=== PATIENT | male | born 1950 | race Caucasian/White ===

== ENCOUNTER → 2017-05-28 15:47 | Outpatient (CLI) | payer MEDICARE, SELFPAY | PROVIDERS: Family Provider Family Medicine; PCP Family Medicine; Visit Provider Urology | DX: R97.20 Elevated prostate specific antigen [PSA] (principal) | CPT/HCPCS: 36415; 84153 ==

== ENCOUNTER → 2017-05-29 08:55 | Outpatient (CLI) | payer MEDICARE, SELFPAY ==
--- NOTE | 2017-05-29 08:57 | ECHOD_ITS ---
Reason For Study: HTN Procedure This was a 2D Doppler, Color Flow transthoracic echocardiogram. Exam performed in department. Left Ventricle Normal LV size. Left ventricular systolic function is normal. The estimated ejection fraction is 60 %. No regional wall motion abnormalities noted. Right Ventricle Normal RV size. Normal systolic function. Atria Normal left atrium. Normal right atrium. Patent foramen ovale. Mitral Valve Normal mitral valve. Mild (1+) eccentric mitral valve insufficiency. Tricuspid Valve Normal tricuspid valve. Trivial tricuspid valve insufficiency. Aortic Valve Normal aortic valve. Trisinus/trileaflet aortic valve. Mild (1+) eccentric aortic valve insufficiency. Pulmonic Valve Normal pulmonic valve. Trivial pulmonic valve insufficiency. Great Vessels Normal aortic root. The pulmonary artery is normal size. Normal inferior vena cava. Pericardium/Pleural No pericardial effusion. Medication Performed a rapid injection of agitated mix of 9 cc saline and 1cc air to assess for atrial septal defect. MMode/2D Measurements & Calculations LVIDd: 4.9 cm IVSd: 0.94 cm Ao root diam: 3.5 cm LVIDs: 2.8 cm LVPWd: 0.98 cm LA dimension: 4.1 cm RVDd: 2.9 cm FS: 42.3 % LAV(MOD-bp): 51.0 ml LAV(MOD-bp) Indexed: 25.0 ml/m2 LA A4 area: 16.9 cm2 RA A4 area: 15.6 cm2 LAV(MOD-sp2): 54.6 ml LAV(MOD-sp4): 47.0 ml Doppler Measurements & Calculations MV E max kosta: 50.3 cm/sec Lat Peak E' Kosta: 8.0 cm/sec Med Peak E' Kosta: 4.5 cm/sec MV A max kosta: 79.4 cm/sec E/E' lat: 6.3 E/E' med: 11.3 MV E/A: 0.63 Ao V2 max: 139.6 cm/sec LV V1 max: 87.9 cm/sec PA V2 max: 92.5 cm/sec Ao max P.8 mmHg LV V1 max P.1 mmHg Ao V2 mean: 98.6 cm/sec Ao mean P.2 mmHg Ao V2 VTI: 26.3 cm PI end-d kosta: 96.2 cm/sec TR max kosta: 210.3 cm/sec TR max P.7 mmHg Interpretation Summary Normal LV size. Left ventricular systolic function is normal. The estimated ejection fraction is 60 %. Patent foramen ovale. Mild (1+) eccentric mitral valve insufficiency. Ordering Physician: Zane Sánchez Referring Physician: Zane Sánchez Performed By: Carmela Irvin, MUNACS, RVT
== END ==
PROVIDERS: Family Provider Family Medicine; PCP Family Medicine; Visit Provider Family Medicine
DX: I10 Essential (primary) hypertension (principal); R06.02 Shortness of breath
CPT/HCPCS: 93306; A4216

== ENCOUNTER → 2017-07-03 09:02 | Outpatient (CLI) | payer MEDICARE, SELFPAY ==
--- NOTE | 2017-07-02 | PROSBIL_PTH ---
PATIENT: TIERRA TIPTON LOC: [facility] U#:[id number] AGE/SX: 75/M ROOM: RE07/03/[address]: Dr. Atul Bender MD : 1950 BED: DIS: SPEC #: [id number] RECD: 07/03/17 12:00 STATUS: DHARMESH YOUSIF #: [id number] HARVINDER: 07/02/17 00:[address]: Atul Bender DEPT: SURGICAL PATHOLOGY RECD BY: Ozzie Maldonado ENTERED: 07/03/17 12:00 SP TYPE: PROST BX DIANA DR: Dr. Zane Sánchez MD Tissues: A - PROSTATE RIGHT B - PROSTATE RIGHT C - PROSTATE RIGHT D - PROSTATE LEFT E - PROSTATE LEFT F - PROSTATE LEFT Procedures: PROSTATE BX HEADER OPERATION: Prostate biopsy PRE-OP DIAGNOSIS: Elevated PSA TISSUE SUBMITTED: A - Right apex, B - Right mid, C - Right base, D - Left apex, E - Left mid, F - Left base MICROSCOPIC DIAGNOSIS A. Right prostate, apex, core biopsy: Prostatic adenocarcinoma: Rosalinda grade: 3+4=7 Number of cores involved: 2 out of 2 Proportion of tissue involved: 60% Perineural invasion: Suspected. Greatest tumor length: 0.5 cm B. Right prostate, mid, core biopsy: Focal high-grade prostatic intraepithelial neoplasia (HGPIN). Focal atrophy. C. Right prostate, base, core biopsy: Prostatic tissue, negative for malignancy. Focal atrophy. D. Left prostate, apex, core biopsy: Prostatic tissue, negative for malignancy. Focal mild chronic inflammation and minimal acute inflammation. E. Left prostate, mid, core biopsy: Prostatic tissue, negative for malignancy. Focal atrophy. F. Left prostate, base, core biopsy: Prostatic tissue, negative for malignancy. STEPH:mable 07/06/17 COMMENT Please make reference to previous specimen ([id number], [id number]) right and left prostate, core biopsy with diagnosis of prostatic tissue, negative for malignancy and ([id number]) prostate, right apex, mid and base and prostate, left apex, mid and base with diagnosis of prostatic tissue, negative for malignancy. Case has been reviewed in consultation with Dr. Herrera who concurs with the above diagnosis. IDC:AM MICROSCOPIC DESCRIPTION Slides are reviewed. GROSS DESCRIPTION A - Received is one container designated prostate, right apex. The specimen consists of two elongated fragments of light lópez-white soft tissue each measuring 1 cm in length and 0.1 cm in diameter. The specimen is totally submitted in one cassette. B - Received is one container designated prostate, right mid. The specimen consists of two elongated fragments of light lópez-white soft tissue each measuring 2 cm in length and 0.1 cm in diameter. The specimen is totally submitted in one cassette. C - Received is one container designated prostate, right base. The specimen consists of two elongated fragments of light lópez-white soft tissue each measuring 1.5 cm in length and 0.1 cm in diameter. The specimen is totally submitted in one cassette. D - Received is one container designated prostate, left apex. The specimen consists of two elongated fragments of light lópez-white soft tissue each measuring 1 cm in length and 0.1 cm in diameter. The specimen is totally submitted in one cassette. E - Received is one container designated prostate, left mid. The specimen consists of two elongated fragments of light lópez-white soft tissue each measuring 1 cm in length and 0.1 cm in diameter. The specimen is totally submitted in one cassette. F - Received is one container designated prostate, left base. The specimen consists of two elongated fragments of light lópez-white soft tissue each measuring 1 cm in length and 0.1 cm in diameter. The specimen is totally submitted in one cassette. / AM:mable 07/03/17 TC:0 CPT: G0146 ADDENDUM ADDENDUM ADDENDUM ADDENDUM ADDENDUM ADDENDUM ADDENDUM ADDENDUM 08/07/2017 09:12 ADDENDUM 08/07/2017 09:12 ADDENDUM 08/07/2017 09:12 ADDENDUM 08/07/2017 09:12 ADDENDUM 08/07/2017 09:12 An order for Oncotype testing was received from Dr. Bendre. This necessitated case review, block and slide selection by pathologist at [facility]. Prostate Cancer Recurrence Score = 45 Results of the complete Oncotype testing (swabr report) are viewable in EMR under: Reports - Pathology - Lab Pathology Report, Scanned.
== END ==
PROVIDERS: Family Provider Family Medicine; PCP Family Medicine; Visit Provider Urology
DX: R97.20 Elevated prostate specific antigen [PSA] (principal)
CPT/HCPCS: 88305; G0416

== ENCOUNTER → 2017-07-22 08:26 | Outpatient (CLI) | payer MEDICARE, SELFPAY ==
--- NOTE | 2017-07-22 08:31 | NM_ITS ---
CLINICAL: Male, 67 years old. Prostate cancer. WHOLE BODY NUCLEAR BONE SCAN TECHNIQUE: Following the IV administration of 27 mCi of Tc MDP, whole body bone imaging was performed with a gamma camera following a three hour delay. COMPARISON STUDIES : NM - None. CR - Not available for review at this time. CT - Not available for review at this time. MR - Not available for review at this time. US - Not available for review at this time. FINDINGS: There are no focal suspicious areas of uptake to suggest metastatic disease. There are degenerative changes in both shoulders right worse than left, throughout the spine, both elbows, wrists, knees, ankle and feet. NM/Bone Scan Whole Body IMPRESSION: No evidence of metastatic prostate cancer. Widespread degenerative changes. Electronically Signed: Janes Arzate MD at 16:09 EDT , Service support ,
== END ==
PROVIDERS: Family Provider Family Medicine; PCP Family Medicine; Visit Provider Urology
DX: C61 Malignant neoplasm of prostate (principal)
CPT/HCPCS: 78306

== ENCOUNTER → 2017-07-23 14:25 | Outpatient (CLI) | payer MEDICARE, SELFPAY ==
--- NOTE | 2017-07-23 14:26 | CT_ITS ---
STUDY: CT ABDOMEN AND PELVIS WITH CONTRAST REASON FOR EXAM: Male, 67 years old. Prostate cancer. RADIATION DOSAGE (If Supplied By Facility): CTDIvol = ( 14.65 ) mGy, DLP = ( 667.52 ) mGycm TECHNIQUE: Transaxial images were obtained from the dome of the diaphragm to the symphysis pubis without oral contrast. 100mL ml of Isovue 300 contrast was administered. Sagittal and coronal images were reconstructed. Individualized dose optimization techniques were used for this CT. COMPARISON: None. FINDINGS: The visualized lung bases are unremarkable. The visualized portions of the heart are within normal limits. Normal liver. Normal gallbladder and extrahepatic biliary system. Normal spleen. Normal pancreas. Normal bilateral adrenal glands. Normal right kidney. Normal left kidney. Evaluation of the GI tract is limited by absence of oral contrast. Cannot exclude stomach wall thickening. No dilated loops of bowel or evidence for obstruction. Cannot exclude segmental thickening of the rodriguez of the small or large bowel. Cannot exclude enteritis or colitis. Moderate diffuse fecal retention. Appendix within normal limits. Normal abdominal aorta. Normal inferior vena cava. Normal retroperitoneum. Normal urinary bladder. There is enlargement of the prostate gland. Normal abdominal wall. There are diffuse degenerative changes of the visualized lumbar spine. CT/Abdomen/Pelvis WITH Contrast IMPRESSION: There is no definite acute abnormality. There is prostate enlargement. There is no definite adenopathy. Electronically Signed: Janes Arzate MD at 22:18 EDT , Service support ,
[2017-07-23 14:46] LABS: CREATININE FINGERSTICK 0.7 mg/dL (0.70-1.30); EGFR FINGERSTICK > 60.0000 mL/min (>60)
== END ==
PROVIDERS: Family Provider Family Medicine; PCP Family Medicine; Visit Provider Urology
DX: C61 Malignant neoplasm of prostate (principal)
CPT/HCPCS: 74177; Q9967

== ENCOUNTER → 2017-07-29 11:08 | Outpatient (CLI) | payer MEDICARE, SELFPAY ==
[2017-07-29 12:17] LABS: BNP,B-Type NATRIURETIC PEPTIDE 19.2 pg/mL (0-100)
== END ==
PROVIDERS: Family Provider Family Medicine; PCP Family Medicine; Visit Provider Internal Medicine Cardiovascular Disease
DX: R06.09 Other forms of dyspnea (principal)
CPT/HCPCS: 36415; 83880

== ENCOUNTER → 2017-08-03 11:33 | Outpatient (CLI) | payer MEDICARE, SELFPAY ==
--- NOTE | 2017-08-03 15:52 | STRESSREP ---
Stress Test Report Exercise myocardial perfusion stress test. 67-year-old man with a history of shortness of breath. Stress protocol: Resting EKG demonstrates normal sinus rhythm with a rate of 65 beats minute normal intervals are noted. The patient exercised according to the regular Cornelio protocol for a total duration of 9 minutes and 16 seconds patient completed 60 seconds to stage IV of the Cornelio protocol the maximum heart rate attained was 129 bpm which was 83% maximum predicted heart rate the maximum workload attained was 10.5 metabolic equivalents. At rest there were no ST or T-wave changes noted suggest ischemia at peak exercise upsloping ST changes only were noted with no meet the criteria for ischemia. No clinical angina was noted occasional premature ventricular complexes were present. The resting blood pressure is 146/82 with a peak blood pressure 174/88. Conclusion: Exercise stress test with no EKG criteria for ischemia at a high workload. No clinical angina noted.
--- NOTE | 2017-08-03 15:55 | STRESSREP_ITS ---
Stress Test Report Exercise myocardial perfusion stress test. 67-year-old man with a history of shortness of breath. Stress protocol: Resting EKG demonstrates normal sinus rhythm with a rate of 65 beats minute normal intervals are noted. The patient exercised according to the regular Cornelio protocol for a total duration of 9 minutes and 16 seconds patient completed 60 seconds to stage IV of the Cornelio protocol the maximum heart rate attained was 129 bpm which was 83% maximum predicted heart rate the maximum workload attained was 10.5 metabolic equivalents. At rest there were no ST or T -wave changes noted suggest ischemia at peak exercise upsloping ST changes only were noted with no meet the criteria for ischemia. No clinical angina was noted occasional premature ventricular complexes were present. The resting blood pressure is 146/82 with a peak blood pressure 174/88. Conclusion: Exercise stress test with no EKG criteria for ischemia at a high workload. No clinical angina noted.
== END ==
PROVIDERS: Family Provider Family Medicine; PCP Family Medicine; Visit Provider Internal Medicine Cardiovascular Disease
DX: R06.09 Other forms of dyspnea (principal)
CPT/HCPCS: 93017

== ENCOUNTER → 2017-08-12 13:39 | Outpatient (CLI) | payer MEDICARE, SELFPAY ==
[2017-08-12 14:30] LABS: PSA,Total- Diagnostic 9.59 ng/mL (0.0-4.0)
== END ==
PROVIDERS: Family Provider Family Medicine; PCP Family Medicine; Visit Provider Urology
DX: C61 Malignant neoplasm of prostate (principal)
CPT/HCPCS: 36415; 84153

== ENCOUNTER 2017-09-02 06:33 | Inpatient (IN) | payer MEDICARE, SELFPAY ==
[2017-08-27 09:20] VITALS: BP 127/81; PULSE 64; RESP 18; TEMP 36.5; O2SAT 98; BMI 24.2
--- NOTE | 2017-08-27 09:25 | EKG12_ITS ---
Test Reason : Blood Pressure : / mmHG Vent. Rate : 064 BPM Atrial Rate : 064 BPM P-R Int : 172 ms QRS Dur : 082 ms QT Int : 444 ms P-R-T Axes : 053 009 040 degrees QTc Int : 458 ms Poor data quality, interpretation may be adversely affected Normal sinus rhythm Normal ECG Confirmed by DAVON MCCORMICK, BERNY ([id number]), commercial production editor ALBERT HAAS ([id number]) on 08/28/2017 2:57:55 PM Referred By: Atul Bender Confirmed By:BERNY MAYS MD
[2017-09-02] VITALS (25 sets, daily range): BP systolic 100–144; BP diastolic 60–97; PULSE 60–93; RESP 12–23; TEMP 36.1–37.1; O2SAT 92–100; BMI 24.2; BMI 24.1
--- NOTE | 2017-09-02 | IMM_PTH ---
PATIENT: TIERRA TIPTON LOC: [facility] U#:[id number] AGE/SX: 67/M ROOM: SC317 RE09/02/[address]: Dr. Atul Bender MD : 1950 BED: 1 DIS: 09/04/2017 SPEC #: [id number] RECD: 09/07/17 12:33 STATUS: DHARMESH REQ #: [id number] HARVINDER: 09/02/17 00:[address]: Atul Bender DEPT: IMMUNOHISTOCHEMISTRY RECD BY: Alexa Borune ENTERED: 09/07/17 12:35 SP TYPE: IMMUNO OTHR DR: DO Dr. Zane Castillo MD Tissues: D - Prostate, NOS Procedures: 34BE12 (add) P40 (add) 34BE12 (initial) PHYSICIAN & INSTITUTION [place] [id number] SPECIMEN INFORMATION: Tissue Source: D - Prostate Clinical Info: Prostate cancer, elevated PSA Specimen Number: [id number] D1, D8, D20 CPT code: 66507, 52233 x5 METHODOLOGY: Deparaffinized sections of prefer/formalin-fixed tissue or PAP/DQ stained slides are incubated with monoclonal/polyclonal antibodies/oligonucleotide probes. Localization is made via biotin free immunoperoxidase method. Appropriate controls are performed and reacted as expected. Results on target cell population are indicated in the following table: RESULTS: ANTIBODY / CLONE RESULT Block D1 P40 (BC28) negative 34BE12 (34BE12) negative Block D8 P40 (BC28) positive 34BE12 (34BE12) positive Block D20 P40 (BC28) negative 34BE12 (34BE12) negative These tests were developed and their performance characteristics determined by [facility]. They may not have been cleared or approved by the U.S. Food and Drug Administration. The FDA has determined that such clearance or approval is not necessary. INTERPRETATION: D. Prostate, radical prostatectomy: Prostatic adenocarcinoma (D1 & D20). Negative for adenocarcinoma (D8). SJ:mable 09/08/17
[2017-09-02 06:49] LABS: Hematocrit 43.3 % (40-54); Mean Corp Hgb Conc 34.6 g/gl (32-36); Mean Corpuscular Hgb 30.7 pg (27.0-32.0); Mean Corpuscular Volume 88.7 fL (80-94); Mean Platelet Vol. 8.7 fl (6.2-12.0); Platelet Count 240 K/mm3 (150-450); RBC Distribution Width CV 13.3 % (11.6-14.6); Red Blood Count 4.88 M/mm3 (4.6-6.2); Scan Indicated on CBC? Y/N NO; White Blood Count 5.5 K/mm3 (4.4-11.0)
[2017-09-02] MEDS: Cefazolin 2 GM in 0.9% Normal Saline 100 ML IV (08:30)
--- NOTE | 2017-09-02 08:30 | PROST_PTH ---
PATIENT: TIERRA TIPTON LOC: MS[facility] U#:[id number] AGE/SX: 67/M ROOM: MS317 RE09/02/[address]: Dr. Atul Bender MD : 1950 BED: 1 DIS: 09/04/2017 SPEC #: [id number] RECD: 09/02/17 15:19 STATUS: DHARMESH REMagali #: [id number] HARVINDER: 09/02/17 08:[address]: Atul Bender DEPT: SURGICAL PATHOLOGY RECD BY: Manoj Carlin ENTERED: 09/03/17 08:53 SP TYPE: PROSTATE OTHR DR: DO Dr. Zane Castillo MD Tissues: A - Adipose tissue B - Lymph node of pelvis, NOS C - Lymph node of pelvis, NOS D - Prostate, NOS Procedures: Surgery Specimen Level III Surgery Specimen Level V Surgery Specimen Level HEADER OPERATION: Laparoscopic robotic assisted radical prostatectomy PRE-OP DIAGNOSIS: Prostate cancer, elevated PSA TISSUE SUBMITTED: A ? Fat over prostate, B ? Right pelvic lymph node, C ? Left pelvic lymph node, D - Prostate MICROSCOPIC DIAGNOSIS A. Fat over prostate: Mature adipose tissue, negative for carcinoma. B. Right pelvic lymph node, biopsy: One lymph node, negative for carcinoma. C. Left pelvic lymph node, biopsy: One lymph node, negative for carcinoma. D. Prostate, radical prostatectomy: Prostatic adenocarcinoma. See cancer summary below. PROSTATE CANCER (RADICAL) SUMMARY: Procedure ? radical prostatectomy Prostate size ? 5.2 cm transversely, 5 cm anterior posteriorly and 4.5 cm craniocaudally. Prostate weight ? 79.5 gm Lymph node sampling ? pelvic lymph node dissection Histologic type ? adenocarcinoma (acinar, not otherwise specified) Histologic grade ([place] Pattern): Primary pattern - 3 Secondary pattern - 4 Tertiary pattern ? not applicable Total Rosalinda score - 7 Tumor Quantitation: Proportion (%) of prostate involved by tumor - <5% Tumor size ? see comment Extraprostatic extension ? not identified Seminal vesicle invasion ? not identified Margins ? apical margin focally involved by invasive carcinoma (left lobe). Treatment effect on carcinoma ? no known presurgical therapy Lymph-Vascular invasion ? not identified Perineural invasion - present Regional lymph nodes: Number examined - 2 Number involved - 0 Distant metastasis ? not applicable Additional pathologic findings ? benign prostatic hyperplasia, glandular and stromal type. - Focal high grade prostatic intraepithelial neoplasia (HGPIN). - Chronic inflammation. Ancillary studies ? see IHC ([id number]). PATHOLOGIC STAGE: pT2a pN0 Mx The above summary is in compliance with [employer] (CAP) Cancer Protocols Checklist and [place] [employer] Committee on Cancer (AJCC), Staging Manual, 8th Ed. SJ:mable 09/08/17 COMMENT D. The adenocarcinoma is noted in three blocks (1, 13 and 20) in discontinuous fashion. The tumor measured microscopically and measures in block 1 - 1.2 x 0.5 cm, block 13 ? 0.3 x 0.1 cm and block 20 -0.5 x 0.5 cm. The tumor is predominantly noted in the left lobe apical and mid portion of the specimen. Block 20 cannot be assessed as it is submitted later as an additional section. Immunohistochemistry ([id number]) supports the above diagnosis. Please make reference to previous specimen ([id number]), right prostate, apex, core biopsy with diagnosis of prostatic adenocarcinoma and right prostate, mid, core biopsy with diagnosis of focal high-grade prostatic intraepithelial neoplasia. MICROSCOPIC DESCRIPTION Slides are reviewed. GROSS DESCRIPTION A - Received in fixative is one container labeled with the patient's name and designated fat over prostate. The specimen consists of an irregular fragment of yellow fatty tissue measuring 3.5 x 3 x 1 cm. Serial sections do not reveal mass lesions. Medical Services Coordinator sections are submitted in one cassette. / AM: 09/03/17 B - Received in fixative is one container labeled with the patient's name and designated right pelvic lymph node. The specimen consists of an irregular fragment of yellow fatty tissue measuring 4 x 2.5 x 0.4 cm. Dissection reveals a single elongated lópez tissue measuring 2.5 cm in greatest dimension and resembling a lymph node. The specimen is tonally submitted in two cassettes as follows: 1 ? presumed lymph node, 2 ? remainder of the specimen. / AM: 09/03/17 C - Received in fixative is one container labeled with the patient's name and designated left pelvic lymph node. The specimen consists of an irregular fragment of yellow fatty tissue measuring 3.5 x 3 x 0.2 cm. Dissection reveals a single elongated lópez tissue measuring 1.5 cm in greatest dimension and resembling a lymph node. The specimen is tonally submitted in two cassettes as follows: 1 ? presumed lymph node, 2 ? remainder of the specimen. / AM:mable 09/03/17 D - Received in fixative is one container labeled with the patient's name and designated prostate. The specimen consists of a prostate with attached right and left seminal vesicles and vas deferens. The specimen weighs 79.5 gm and measures 5.2 cm transversely, 5 cm anterior-posteriorly and 4.5 cm craniocaudally. The specimen is smooth and glistening. The external surface is inked as follows: anterior ? red, right half ? blue, left half ? green and entire posterior portion of the specimen in black. The gland is cut from apex to base at approximately 3-4 mm. No distinct mass nodule or rubbery nodularities are identified. Medical Services Coordinator sections are submitted as follows: 1 ? apex of gland (distal urethral shaved margin), 2 ? proximal urethral shaved margin (bladder shave), 3 ? seminal vesicles, 4 & 5 ? most basal section of prostate, 6-9 ? apex of gland, 10-15 ? mid portion of gland, 16-19 ? basal portion of gland. / AM:mable 09/03/17 More sections are submitted in 8 more cassettes -. / SJ:mable 09/07/17 TC:0 CPT: 44168, 10666 x2, 03707
--- NOTE | 2017-09-02 08:32 | PCM.DC.URO ---
Discharge Diet: Light diet - advance as tolerated, Soft diet Discharge Activity: May Not Drive, May Shower Return to work on:: 10/14/17 May shower in (days): 1 May resume sexual activity in: 6 weeks Call your doctor if your incision/area has: Continuous Slow Oozing, Sudden Increased Bleeding, Increased Pain/ Swelling, Increased Redness, Foul Smelling Discharge, Swelling at the incision site Call your doctor if you observe: Fever of 101 or Higher, Inability to urinate, Inability to have a bowel movement, Uncontrolled pain Suture Line Care: Avoid Pulling/Pushing, Avoid Pinching/Bending Catheter: Cochran to leg bag, Cochran to large bag Drain: [place] Instructions: Discharge Instructions for Radical Prostatectomy Allergies/Adverse Reactions: Allergies lisinopril Allergy (Verified 08/27/17 09:05) Swelling Medications to take at Discharge aspirin 81 mg tablet,delayed release 81 mg PO QDAY tab 07/28/17 fluoxetine 40 mg capsule 40 mg PO QDAY 07/28/17 multivitamin capsule 1 cap PO QDAY 07/28/17 simvastatin 40 mg tablet 40 mg PO QPM 07/28/17 amlodipine 5 mg tablet 5 mg PO QDAY tab 07/29/17 cholecalciferol (vitamin D3) 50,000 unit capsule 50,000 unit PO QMONTH cap 07/29/17 Ciprofloxacin [Cipro] 500 mg PO BID #20 tab 09/02/17 Docusate Sodium [Colace] 100 mg PO BID #20 cap 09/02/17 Hydrocodone/Acetaminophen [[place] 5-325 Tablet] 1 ea PO Q4H PRN PRN 5 Days #20 tab 09/02/17 The following prescriptions were given: Hydrocodone/Acetaminophen [[place] 5-325 Tablet] 1 ea PO Q4H PRN PRN 5 Days #20 tab PRN Reason: Pain Ciprofloxacin [Cipro] 500 mg PO BID #20 tab Docusate Sodium [Colace] 100 mg PO BID #20 cap Primary Care Physician: Zane Sánchez MD [Primary Care Provider] - Please Follow Up With: Atul Bender MD When: September 14 at 9am Proposed Discharge Date: 09/03/17
--- NOTE | 2017-09-02 12:09 | PCM.OPRPT ---
Report of Operation Date of Procedure: 09/02/17 Pre-Operative Diagnosis: Prostate cancer Post-Operative Diagnosis: Same Surgery/Procedure Performed:: Laparoscopic robotic assisted radical prostatectomy with bilateral nerve sparing, suture suspension of the urethra, bilateral pelvic lymph node dissection, EMG monitoring of pelvic nerves and sphincter. Description of Surgical Findings:: 67-year-old male was taken back to the operating room he is elected to undergo radical prostatectomy with nerve sparing. After smooth induction of anesthesia he was placed in dorsal lithotomy position has a history of prostate cancer. The abdomen was shaved prepped and draped in usual sterile fashion, I then made an incision supraumbilically and then advanced the Veress needle into the peritoneal cavity filled the peritoneal cavity with CO2 gas, doc my ports then docked the robot and then we proceeded with the dissection first we dissected the below the bladder the right seminal vesicle and right vas deferens was dissected free and then the left seminal vesicle and left vas deferens was dissected free. I then dissected and dropped the bladder created the space of Retzius place the bladder on traction. We identified the pelvic lymph nodes in the right lateral wall created the space and dissected out the lymph nodes placing clips this was handed off as a specimen. I then identified the left pelvic lymph nodes in the left lateral wall created the space identified the borders which was the obturator nerve the vasculature noted [place] placed clips and remove the lymph nodes sent off as specimen. 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 After placing the stitch in the dorsal vein I went back to the bladder neck and prostate junction dissected between the bladder and the prostate identified the proper plane he had a prior TURP. I then dissected the posterior aspect of the bladder from the prostate and then came across the central vesicle and vas deferens which were already dissected out, we then placed the EMG electrodes in the pelvic sidewall I then opened up the neurovascular bundle on the right side by cutting the fascia over this and sweep in the neurovascular bundles off the prostate trying to maintain the pseudocapsule. I then came through the right pedicle with clips and then after this was able to sweep the neurovascular bundle off the prostate all the way to the apex. I then went to the left side identified the neurovascular bundle the left side incised the capsule and then put a clip through the pedicle on the left side and then dissected the left neurovascular bundle of the prostate this came off fairly well but still was fairly adherent could not get the entire neurovascular bundle off probably about a 50-75% dissection. During this process we then monitor the pelvic lymph nodes with EMG monitor both the nerves were identified and before and after the dissection were checked and they both stimulated and had good action potential on both sides. Then transected through the dorsal vein complex place an extra stitch in the dorsal vein complex transected to the urethra and then the prostate was free put an Endo Catch bag I then performed a super suture suspension of the urethra suspending the urethra to help with postoperative incontinence and then over catheter finished the anastomosis between the bladder and the urethra with 3-0 Vicryl and then after completing this we then re-tacked the bladder back up into the anterior abdominal wall. Excise the prostate through the supraumbilical site undocked the robot after extracting the prostate we then closed all the oldest of the skin with subcuticular stitches we did put a stitch in the variceal port and we closed our supraumbilical umbilical port with [id number] stitches to use [id number] stitches patient's anesthesia was reversed to take back to PACU in good condition, catheter was flushed until clear. Type of Anesthesia:: General Drains: miller - Admit VTE Documentation VTE Present on Admission: No VTE Mechan Device Prophylaxis: SCD's VTE Pharm Prophylaxis ordered?: No Reason prophylaxis not ordered:: Treatment Not Indicated
--- NOTE | 2017-09-02 13:02 | RAD_ITS ---
STUDY: X-RAY CHEST REASON FOR EXAM: Male, 67 years old. Endotracheal tube placement. TECHNIQUE: Single AP portable view of the chest. COMPARISON: None. FINDINGS: An endotracheal tube is in situ. The tip is at 4.2 cm proximal to the millie. EKG electrodes are seen. Mild increased markings at the left lung base suggestive of a linear atelectasis. There is no demonstrated pleural abnormality. Normal size heart. Normal mediastinum and patrick. Normal visualized pulmonary arteries. Normal visualized aortic arch and descending thoracic aorta. There are diffuse degenerative changes of the visualized thoracic spine. There is degenerative osteoarthritis of the bilateral shoulders. Surgical clips are seen overlying the right glenohumeral joint. There is no demonstrated abnormality of the visualized soft tissue structures of the upper abdomen. RAD/Chest 1 View IMPRESSION: The tip of the endotracheal tube is at 4.2 cm proximal to the millie. Mild increased markings at the left lung base suggestive of atelectasis. Electronically Signed: Daryl Harrington MD at 13:37 EDT Tel [phone], Service support ,
--- NOTE | 2017-09-02 13:06 | EKG12_ITS ---
Test Reason : Blood Pressure : / mmHG Vent. Rate : 076 BPM Atrial Rate : 076 BPM P-R Int : 188 ms QRS Dur : 094 ms QT Int : 446 ms P-R-T Axes : 068 038 066 degrees QTc Int : 501 ms Normal sinus rhythm Low voltage QRS Nonspecific ST and T wave abnormality Prolonged QT Abnormal ECG When compared with ECG of 27-AUG-2017 08:38, Nonspecific T wave abnormality, worse in Inferior leads Confirmed by ADARSH MCCORMICK, TABITHA ([id number]), school photograph editor ALBERT HAAS ([id number]) on 09/08/2017 2:08:21 PM Referred By: Atul Bender Confirmed By:TABITHA ALTAMIRANO MD
--- NOTE | 2017-09-02 13:06 | SUR.PHASEI ---
1255 PT HAD HYPOXIC EVENT. SEE NAIL TECH DOCUMENTATION
[2017-09-02 13:20] LABS: Absolute Lymphocyte Count 1.22 X10^3/ul (0.83-4.51); Absolute Neutrophil Count 11.3 X10^3/uL (2.0-7.7); Basophil# 0.01 X10^3/uL; Basophil% 0.1 % (0-1); Eosinophil# 0.02 X10^3/uL; Eosinophils% 0.2 % (0-5); Hematocrit 41.1 % (40-54); Hemoglobin 13.7 g/dl (13.0-16.5); Lymphocyte # 1.22 X10^3/ul (4.0); Lymphocyte % 9.5 % (19-41); Mean Corp Hgb Conc 33.3 g/gl (32-36); Mean Corpuscular Hgb 29.8 pg (27.0-32.0); Mean Corpuscular Volume 89.5 fL (80-94); Monocyte# 0.19 X10^3/uL; Monocyte% 1.5 % (0-10); Neutrophil # 11.32 X10^3/uL (2.7-7.7); Neutrophil % 88.5 % (47-70); Platelet Count 184 K/mm3 (150-450); RBC Distribution Width CV 13.4 % (11.6-14.6); RBC Distribution Width SD 43.8 fl (35.1-43.9); Red Blood Count 4.59 M/mm3 (4.6-6.2); White Blood Count 12.8 K/mm3 (4.4-11.0)
[2017-09-02 13:25] LABS: POSITIVE COUNT NO; POSITIVE DIFFERENTIAL NO; POSITIVE MORPHOLOGY NO
[2017-09-02 13:35] LABS: BUN 10 mg/dL (7-18); Creatinine, Serum 1.08 mg/dL (0.70-1.30); EST Glomerular Filtration Rate 73 mL/min (>60); Estimated Creatinine Clearance 73.85 ml/min; Glucose 147 mg/dL (74-106)
[2017-09-02 13:36] LABS: AST(SGOT) 18 U/L (15-37); Alanine Aminotransfer ALT/SGPT 27 U/L (16-61); Albumin, Serum 3.3 g/dL (3.2-5.0); Alkaline Phosphatase 59 U/L (45-117); Anion Gap 7 (5-15); BUN/Creat Ratio 9.3 RATIO (10-20); Calcium,Total 8.4 mg/dL (8.5-10.1); Chloride 108 mmol/L (98-107); Est Glom Filt Rate - Afr Amer 88 mL/min (>60); Globulin 3.3 g/dL (2.2-4.2); Potassium 4.2 mmol/L (3.5-5.1); Protein, Total 6.6 g/dL (6.4-8.2); Sodium Level 140 mmol/L (136-145)
[2017-09-02 13:56] LABS: Allen Test POS; Base Excess -2 mmol/L (-2 to +2); Bicarbonate 22.3 mmol/L (22-26); Blood Gas Specimen Type ART; FI02 50; Mode CPAP PS; O2 Delivery Device Vent; PEEP 5; PO2 98 mmHG (75-100); PS 10; SITE R Radial; SO2 98 % (95-99); Time Given 1348; Total Carbon Dioxide 23 mmol/L; pCO2 35.6 mmHg (35-45); pH 7.41 (7.35-7.45)
[2017-09-02] MEDS: 0.9% Normal Saline 1,000 ML 125 ML IV ×2 (14:01→21:18)
[2017-09-02] MEDS: Bupivacaine Mpf 0.5% 30 ML VIAL (14:02)
--- NOTE | 2017-09-02 14:12 | CPS ---
Patient was intubated in PACU and was transported to ICU. made the decision to extubate and the patient was placed on BiPAP. Patient tolerating BiPAP well. Ramandeep FREY
--- NOTE | 2017-09-02 14:31 | CON.PCM_ITS ---
Reason for Consult Date of Consultation: 09/02/17 Reason for Consultation: Acute respiratory failure History of Present Illness: The patient is a 67-year-old male, with a history as outlined below, who was transferred to the medical intensive care unit from the PACU, after the patient underwent a laparoscopic radical prostatectomy. The patient was reportedly resting comfortably postoperatively in the PACU when he suddenly became unresponsive. A CODE BLUE was called. The patient was reportedly hypoxic. Per nursing account, no sedating medications were administered to the patient in the PACU. The patient has a history of prostate cancer, vasopressor syncope and obstructive sleep apnea. He reportedly follows with Dr. Cadena with regards to his LEE. He does utilize CPAP on a nocturnal basis, per his 's account. The patient was intubated in the PACU. He did receive 2 mg of Versed prior to his transport to the ICU. On arrival to the intensive care unit, the patient was noted to be alert and interactive. He was placed on CPAP mode of mechanical ventilation with a pressure support of 10 and PEEP of 5. He had adequate tidal volumes noted. The patient was alert and able to follow commands. He did have a notable air leak when the airplane pilot chief balloon was deflated. Arterial blood gas was obtained and was found to be normal. Over concern that perhaps the patient developed laryngospasm in the PACU, the decision was made to extubate the patient to BiPAP 12/6 cm of water. Past Medical History Past Medical History (Chronic Problems): Chronic Problems (Last Reviewed 07/29/17 @ 10:42 by Roney Freedman MD) Patent foramen ovale (Chronic) Hypertension (Chronic) Vasodepressor syncope (Chronic) Hyperlipidemia (Chronic) Allergies lisinopril Allergy (Verified 08/27/17 09:05) Swelling Home Medications: Ambulatory Orders Medication Instructions Recorded aspirin 81 mg tablet,delayed 81 mg PO QDAY tab 07/28/17 release fluoxetine 40 mg capsule 40 mg PO QDAY 07/28/17 multivitamin capsule 1 cap PO QDAY 07/28/17 simvastatin 40 mg tablet 40 mg PO QPM 07/28/17 amlodipine 5 mg tablet 5 mg PO QDAY tab 07/29/17 cholecalciferol (vitamin D3) 50,000 unit PO QMONTH cap 07/29/17 50,000 unit capsule Ciprofloxacin [Cipro] 500 mg PO BID #20 tab 09/02/17 Docusate Sodium [Colace] 100 mg PO BID #20 cap 09/02/17 Hydrocodone/Acetaminophen [[place] 1 ea PO Q4H PRN PRN 5 Days #20 tab 09/02/17 5-325 Tablet] Smoking Status: Light Smoker (<10/day) Review of Systems Unable to obtain accurate/complete ROS d/t: Due to current intubation and mechanical ventilation status - Physical Exam General: Alert, Cooperative, - - Intubated and mechanically ventilated. HEENT: Atraumatic, PERRLA, Normocephalic Oral: No Gingival or Mucosal Lesions/ Ulcerations, - - Endotracheal tube in place Neck: Supple, No Nodes, Trachea Midline Lungs: Normal air movement, No rhonchi, No wheeze, No rales Cardiovascular: Regular rate, Regular Rhythm, Normal S1, Normal S2, No murmurs Abdomen: Bowel Sounds Present, Soft, Non Tender, Non-Distended Extremities: No clubbing, No cyanosis, No edema Skin: No breakdown Musculoskeletal: No Muscle Wasting Lymphatic: No Cervical, Supraclavicular, or Inguinal Adenopathy Neurological: Neuro grossly intact, - - Alert and following commands appropriately. Vital Signs Temp Pulse Resp BP Pulse Ox 97.3 F L 71 14 126/71 H 98 09/02/17 13:30 09/02/17 14:15 09/02/17 14:15 09/02/17 14:15 09/02/17 14:15 Oxygen Delivery Method Bi-pap Weight: 178 lb 5.663 oz Body Mass Index (BMI) 24.1 Intake and Output for Last 24 Hours 08/31/17 09/01/17 09/02/17 23:59 23:59 23:59 Output Total 170 / 170 Balance -170 / -170 Laboratory Tests Past 24 Hrs 09/02/17 09/02/17 09/02/17 06:44 13:10 13:10 WBC 5.5 12.8 H RBC 4.88 4.59 L Hgb 15.0 13.7 Hct 43.3 41.1 MCV 88.7 89.5 MCH 30.7 29.8 MCHC 34.6 33.3 RDW 13.3 13.4 RDW Differential 43.0 43.8 Plt Count 240 184 MPV 8.7 9.0 Immature Gran % (Auto) 0.200 Neut % (Auto) 88.5 H Lymph % (Auto) 9.5 L [place] % (Auto) 1.5 Eos % (Auto) 0.2 Baso % (Auto) 0.1 Absolute Neuts (auto) 11.3 H Absolute Lymphs (auto) 1.22 Total Counted Not Reportable Specimen Type Sample Site pH Bicarbonate Actual POC Total CO2 Base Excess O2 Saturation O2 % ABG pCO2 ABG pO2 Esa Test O2 Delivery Device Vent Mode POC PEEP POC Pressure Suppt Blood Gas Notified Whom Blood Gas Notified Time Sodium 140 Potassium 4.2 Chloride 108 H Carbon Dioxide 25.0 Anion Gap 7 BUN 10 Creatinine 1.08 Estim Creat Clear Calc 73.85 Est GFR (MDRD) Af Amer 88 Est GFR (MDRD) Non-Af 73 BUN/Creatinine Ratio 9.3 L Glucose 147 H Calcium 8.4 L Total Bilirubin 0.60 AST 18 ALT 27 Alkaline Phosphatase 59 Troponin I < 0.015 Total Protein 6.6 Albumin 3.3 Globulin 3.3 Albumin/Globulin Ratio 1.0 MRSA (PCR) 09/02/17 09/02/17 13:30 13:49 WBC RBC Hgb Hct MCV MCH MCHC RDW RDW Differential Plt Count MPV Immature Gran % (Auto) Neut % (Auto) Lymph % (Auto) [place] % (Auto) Eos % (Auto) Baso % (Auto) Absolute Neuts (auto) Absolute Lymphs (auto) Total Counted Specimen Type ART Sample Site R Radial pH 7.41 Bicarbonate Actual 22.3 POC Total CO2 23 Base Excess -2 O2 Saturation 98 O2 % 50 ABG pCO2 35.6 ABG pO2 98 Esa Test POS O2 Delivery Device Vent Vent Mode CPAP PS POC PEEP 5 POC Pressure Suppt 10 Blood Gas Notified Whom ICU MD Blood Gas Notified Time 1348 Sodium Potassium Chloride Carbon Dioxide Anion Gap BUN Creatinine Estim Creat Clear Calc Est GFR (MDRD) Af Amer Est GFR (MDRD) Non-Af BUN/Creatinine Ratio Glucose Calcium Total Bilirubin AST ALT Alkaline Phosphatase Troponin I Total Protein Albumin Globulin Albumin/Globulin Ratio MRSA (PCR) Pending Assessment/Plan RECOMMENDATIONS: 1. Proceed with extubation 2. Place patient on BiPAP 12/6 cm of water 3. Avoid sedating medications 4. Patient to remain n.p.o. for now. Continue gentle supplemental IV fluid hydration. 5. Check troponin. IMPRESSIONS: 1. Acute hypoxic respiratory failure The patient was reportedly intubated in the PACU after sustaining what sounded to be like acute respiratory arrest with subsequent hypoxia. The patient reportedly became acutely unresponsive. However, upon his arrival to the ICU, he was noted to be alert and appropriately interactive. The exact etiology for the patient's unresponsiveness is not known. Regardless, the patient is no longer hypoxic and his arterial blood gases within normal limits. He is alert and appropriately interactive and will be extubated to BiPAP accordingly. We will continue noninvasive positive pressure airway support, should the patient have developed laryngospasm earlier in the day while in the PACU. FiO2 requirements are minimal. 2. Encephalopathy Resolved at this time. Unclear etiology. Arterial blood gas was not obtained prior to his intubation in the PACU. Hypercarbia versus vagally mediated event is a possibility. The patient's arterial blood gases within normal limits. Sedating medications will be withheld. 3. Personal history of obstructive sleep apnea Continue noninvasive positive pressure ventilation as ordered. 4. Prostate cancer, now POD #0 s/p radical prostatectomy Continue routine postoperative management per Dr. Bender. TIME: 38 minutes of critical care time, independent of procedures, was spent addressing the patient's acute respiratory failure, encephalopathy, obstructive sleep apnea, review of all data and collaboration with the care team. ([id number] ) Code Visit 9xxxx: [id number] Critical care first hour
--- NOTE | 2017-09-02 14:47 | CASEMGMT ---
See RN CM Assessment Link. DC Plan: Home. Jodee HUFFN RN ACM
[2017-09-02 15:07] LABS: M R Staph aureus DNA By PCR Negative (Negative); Probe Check PASS; Specimen Processing Control PASS
--- NOTE | 2017-09-02 15:57 | CHAPLAIN ---
Type of Pastoral Visit ___ Initial Visit ___ Follow-up Visit ___ On-call Visit ___ General Patient Visit ___ Spiritual Assessment ___ Family Conference ___ Bereavement ___ Rapid Response _x__ Code Blue ___ Other (describe below) Pastoral Care Referral From ___ Patient ___ Family ___ Nurse ___ Physician ___ Electromechanical Technologist ___ Cable Testers Helper _x__ Other (describe below) Sacrament/Intervention ___ Active listening ___ Anointing ___ Bahai ___ Bereavement ___ Communion ___ Sarah exploration ___ ___ Life review _x__ Prayer ___ Reconciliation ___ Sacrament of Sick _x__ Supportive presence ___ Wedding ___ Other (describe below) Pastoral Comments offer of support to family members at time of code blue; assisted family to ICU and gave information needed to navigate the next phase; returned later to room; pt was resting; spoke with spouse to continue any support desired
[2017-09-02] MEDS: Ketorolac 15 MG/ML Vial IV (21:10)
[2017-09-02] MEDS: Ciprofloxacin 500 MG Tablet PO (21:11)
[2017-09-02] MEDS: Atorvastatin Calcium 20 MG Tablet PO (21:11)
[2017-09-02] MEDS: Docusate Sodium 100 MG Capsule 200 MG PO (21:11)
[2017-09-03] VITALS (18 sets, daily range): BP systolic 126–155; BP diastolic 73–89; PULSE 62–83; RESP 12–24; TEMP 36.7–37.1; O2SAT 92–99
[2017-09-03 04:16] LABS: Hematocrit 36.1 % (40-54); Hemoglobin 12.2 g/dl (13.0-16.5); Mean Corp Hgb Conc 33.8 g/gl (32-36); Mean Corpuscular Hgb 30.6 pg (27.0-32.0); Mean Corpuscular Volume 90.5 fL (80-94); Mean Platelet Vol. 8.9 fl (6.2-12.0); Platelet Count 199 K/mm3 (150-450); RBC Distribution Width CV 13.3 % (11.6-14.6); RBC Distribution Width SD 43.2 fl (35.1-43.9); Red Blood Count 3.99 M/mm3 (4.6-6.2); White Blood Count 12.1 K/mm3 (4.4-11.0)
[2017-09-03 04:19] LABS: Scan Indicated on CBC? Y/N NO
[2017-09-03 04:30] LABS: Anion Gap 6 (5-15); BUN 11 mg/dL (7-18); BUN/Creat Ratio 12.2 RATIO (10-20); Chloride 108 mmol/L (98-107); EST Glomerular Filtration Rate 89 mL/min (>60); Est Glom Filt Rate - Afr Amer 108 mL/min (>60); Estimated Creatinine Clearance 88.62 ml/min; Glucose 132 mg/dL (74-106); Potassium 4.2 mmol/L (3.5-5.1); Sodium Level 140 mmol/L (136-145)
[2017-09-03] MEDS: 0.9% NaCl Peripheral Flush Adult/Peds IV (05:22)
[2017-09-03] MEDS: 0.9% Normal Saline 1,000 ML 125 ML IV (05:22)
--- NOTE | 2017-09-03 06:51 | PN_ITS ---
Subjective: The patient was seen and examined at the bedside this morning. Events from the last 24 hours have been reviewed. The patient is currently afebrile, hemodynamically stable and maintaining appropriate oxygen saturations on room air. The patient had no respiratory issues following extubation yesterday upon his arrival to the ICU. He was kept on BiPAP overnight, due to his history of obstructive sleep apnea. The patient is alert and in good spirits this morning. He reports no significant pain related complaints. Objective: The patient's most recent lab work, culture data and imaging studies have all been personally reviewed. General: Alert, Oriented x3, Cooperative, No apparent distress HEENT: Atraumatic, PERRLA, Normocephalic Oral: No Gingival or Mucosal Lesions/ Ulcerations Neck: Supple, No Nodes, Trachea Midline Lungs: Normal air movement, No rhonchi, No wheeze, No rales Cardiovascular: Regular rate, Regular Rhythm, Normal S1, Normal S2, No murmurs Abdomen: Bowel Sounds Present, Soft, Non Tender Extremities: No clubbing, No cyanosis, No edema Skin: No breakdown Musculoskeletal: No Muscle Wasting Lymphatic: No Cervical, Supraclavicular, or Inguinal Adenopathy Neurological: Neuro grossly intact Psych/Mental Status: Alert and oriented to time, place, person, mood and affect Vital Signs Temp Pulse Resp BP Pulse Ox 98.5 F 65 23 H 126/89 H 93 09/03/17 04:00 09/03/17 06:00 09/03/17 06:00 09/03/17 06:00 09/03/17 06:00 Oxygen Flow Rate (L/min) 1 Oxygen Delivery Method Room Air Weight: 181 lb 14.102 oz Body Mass Index (BMI) 24.1 Intake and Output for Last 24 Hours 09/01/17 09/02/17 09/03/17 23:59 23:59 23:59 Intake Total 2308 / 2308 672 / 672 Output Total 2670 / 2670 450 / 450 Balance -362 / -362 222 / 222 Labs (Last 48 Hours) 09/02/17 09/02/17 09/02/17 06:44 13:10 13:10 WBC 5.5 12.8 H RBC 4.88 4.59 L Hgb 15.0 13.7 Hct 43.3 41.1 MCV 88.7 89.5 MCH 30.7 29.8 MCHC 34.6 33.3 RDW 13.3 13.4 RDW Differential 43.0 43.8 Plt Count 240 184 MPV 8.7 9.0 Immature Gran % (Auto) 0.200 Neut % (Auto) 88.5 H Lymph % (Auto) 9.5 L [place] % (Auto) 1.5 Eos % (Auto) 0.2 Baso % (Auto) 0.1 Absolute Neuts (auto) 11.3 H Absolute Lymphs (auto) 1.22 Total Counted Not Reportable Specimen Type Sample Site pH Bicarbonate Actual POC Total CO2 Base Excess O2 Saturation O2 % ABG pCO2 ABG pO2 Esa Test O2 Delivery Device Vent Mode POC PEEP POC Pressure Suppt Blood Gas Notified Whom Blood Gas Notified Time Sodium 140 Potassium 4.2 Chloride 108 H Carbon Dioxide 25.0 Anion Gap 7 BUN 10 Creatinine 1.08 Estim Creat Clear Calc 73.85 Est GFR (MDRD) Af Amer 88 Est GFR (MDRD) Non-Af 73 BUN/Creatinine Ratio 9.3 L Glucose 147 H Calcium 8.4 L Total Bilirubin 0.60 AST 18 ALT 27 Alkaline Phosphatase 59 Troponin I < 0.015 Total Protein 6.6 Albumin 3.3 Globulin 3.3 Albumin/Globulin Ratio 1.0 MRSA (PCR) 09/02/17 09/02/17 09/03/17 13:30 13:49 04:05 WBC 12.1 H RBC 3.99 L Hgb 12.2 L Hct 36.1 L MCV 90.5 MCH 30.6 MCHC 33.8 RDW 13.3 RDW Differential 43.2 Plt Count 199 MPV 8.9 Immature Gran % (Auto) Neut % (Auto) Lymph % (Auto) [place] % (Auto) Eos % (Auto) Baso % (Auto) Absolute Neuts (auto) Absolute Lymphs (auto) Total Counted Specimen Type ART Sample Site R Radial pH 7.41 Bicarbonate Actual 22.3 POC Total CO2 23 Base Excess -2 O2 Saturation 98 O2 % 50 ABG pCO2 35.6 ABG pO2 98 Esa Test POS O2 Delivery Device Vent Vent Mode CPAP PS POC PEEP 5 POC Pressure Suppt 10 Blood Gas Notified Whom ICU Blood Gas Notified Time 1348 Sodium Potassium Chloride Carbon Dioxide Anion Gap BUN Creatinine Estim Creat Clear Calc Est GFR (MDRD) Af Amer Est GFR (MDRD) Non-Af BUN/Creatinine Ratio Glucose Calcium Total Bilirubin AST ALT Alkaline Phosphatase Troponin I Total Protein Albumin Globulin Albumin/Globulin Ratio MRSA (PCR) Negative 09/03/17 04:05 WBC RBC Hgb Hct MCV MCH MCHC RDW RDW Differential Plt Count MPV Immature Gran % (Auto) Neut % (Auto) Lymph % (Auto) [place] % (Auto) Eos % (Auto) Baso % (Auto) Absolute Neuts (auto) Absolute Lymphs (auto) Total Counted Specimen Type Sample Site pH Bicarbonate Actual POC Total CO2 Base Excess O2 Saturation O2 % ABG pCO2 ABG pO2 Esa Test O2 Delivery Device Vent Mode POC PEEP POC Pressure Suppt Blood Gas Notified Whom Blood Gas Notified Time Sodium 140 Potassium 4.2 Chloride 108 H Carbon Dioxide 26.0 Anion Gap 6 BUN 11 Creatinine 0.90 Estim Creat Clear Calc 88.62 Est GFR (MDRD) Af Amer 108 Est GFR (MDRD) Non-Af 89 BUN/Creatinine Ratio 12.2 Glucose 132 H Calcium 8.0 L Total Bilirubin AST ALT Alkaline Phosphatase Troponin I Total Protein Albumin Globulin Albumin/Globulin Ratio MRSA (PCR) Medical Necessity - Tobacco Use Smoking Status: Light Smoker (<10/day) Assessment/Plan RECOMMENDATIONS: 1. Continue pain control regimen per urology 2. Discontinue supplemental IV fluids 3. Continue nocturnal PAP therapy while admitted to the hospital. 4. Advance diet 5. Encourage incentive spirometer use while in bed and mobilize patient as tolerated. IMPRESSIONS: 1. Acute hypoxic respiratory failure The patient was reportedly intubated in the PACU after sustaining what sounded to be like an acute respiratory arrest with subsequent hypoxia. The patient reportedly became acutely unresponsive. However, upon his arrival to the ICU, he was noted to be alert and appropriately interactive. The exact etiology for the patient's unresponsiveness is not known. Given that the patient was no longer hypoxic and had appropriate gas exchange on arterial blood gas, he was subsequently extubated. He was maintained on BiPAP overnight due to the presence of obstructive sleep apnea. He is without any further respiratory issues and is currently maintaining appropriate oxygen saturations on room air. Supplemental IV fluids can be discontinued. 2. Encephalopathy Resolved at this time. Unclear etiology. Arterial blood gas was not obtained prior to his intubation in the PACU. Hypercarbia versus vagally mediated event is a possibility. 3. Personal history of obstructive sleep apnea Continue noninvasive positive pressure ventilation on a nocturnal basis. 4. Prostate cancer, now POD #1 s/p radical prostatectomy Continue routine postoperative management/pain control per Dr. Bender. This note was generated with [employer] dictation software. It may contain incorrect words, spelling, and punctuation that were not noted in checking the note before signing. DISPOSITION: The patient is medically stable for transfer out of the intensive care unit versus direct discharge home. Will defer to urology accordingly. Given the lack of ongoing ICU needs, will sign off. Code Visit Inpatient E&M: 98805 Subs Hosp L2
--- NOTE | 2017-09-03 07:16 | PN_ITS ---
Subjective: respiratory event in pacu, had to be reintubated now doing well, exam normal - Physical Exam General: Alert, Oriented x3, Cooperative HEENT: Atraumatic, PERRLA, EOMI, Normocephalic Neck: Supple, No JVD, Negative Carotid Bruits Lungs: Clear to auscultation, Normal air movement Cardiovascular: Regular rate, No murmurs Abdomen: Bowel Sounds Present, Soft, Non Tender Extremities: No edema, Capillary Refill Less than 3 Seconds Skin: No rashes, No breakdown Musculoskeletal: No Tenderness to Palpation of Joints or Extremities Neurological: Cranial nerves II-XII grossly intact Psych/Mental Status: Normal Affect, Appropriate Vital Signs Temp Pulse Resp BP Pulse Ox 98.5 F 65 23 H 126/89 H 93 09/03/17 04:00 09/03/17 06:00 09/03/17 06:00 09/03/17 06:00 09/03/17 06:00 Oxygen Flow Rate (L/min) 1 Oxygen Delivery Method Room Air Weight: 82.5 kg Body Mass Index (BMI) 24.1 Intake and Output for Last 24 Hours 09/01/17 09/02/17 09/03/17 23:59 23:59 23:59 Intake Total 2308 / 2308 672 / 672 Output Total 2670 / 2670 450 / 450 Balance -362 / -362 222 / 222 Laboratory Tests Past 24 Hrs 09/02/17 09/02/17 09/02/17 13:10 13:10 13:30 WBC 12.8 H RBC 4.59 L Hgb 13.7 Hct 41.1 MCV 89.5 MCH 29.8 MCHC 33.3 RDW 13.4 RDW Differential 43.8 Plt Count 184 MPV 9.0 Immature Gran % (Auto) 0.200 Neut % (Auto) 88.5 H Lymph % (Auto) 9.5 L [place] % (Auto) 1.5 Eos % (Auto) 0.2 Baso % (Auto) 0.1 Absolute Neuts (auto) 11.3 H Absolute Lymphs (auto) 1.22 Total Counted Not Reportable Specimen Type Sample Site pH Bicarbonate Actual POC Total CO2 Base Excess O2 Saturation O2 % ABG pCO2 ABG pO2 Esa Test O2 Delivery Device Vent Mode POC PEEP POC Pressure Suppt Blood Gas Notified Whom Blood Gas Notified Time Sodium 140 Potassium 4.2 Chloride 108 H Carbon Dioxide 25.0 Anion Gap 7 BUN 10 Creatinine 1.08 Estim Creat Clear Calc 73.85 Est GFR (MDRD) Af Amer 88 Est GFR (MDRD) Non-Af 73 BUN/Creatinine Ratio 9.3 L Glucose 147 H Calcium 8.4 L Total Bilirubin 0.60 AST 18 ALT 27 Alkaline Phosphatase 59 Troponin I < 0.015 Total Protein 6.6 Albumin 3.3 Globulin 3.3 Albumin/Globulin Ratio 1.0 MRSA (PCR) Negative 09/02/17 09/03/17 09/03/17 13:49 04:05 04:05 WBC 12.1 H RBC 3.99 L Hgb 12.2 L Hct 36.1 L MCV 90.5 MCH 30.6 MCHC 33.8 RDW 13.3 RDW Differential 43.2 Plt Count 199 MPV 8.9 Immature Gran % (Auto) Neut % (Auto) Lymph % (Auto) [place] % (Auto) Eos % (Auto) Baso % (Auto) Absolute Neuts (auto) Absolute Lymphs (auto) Total Counted Specimen Type ART Sample Site R Radial pH 7.41 Bicarbonate Actual 22.3 POC Total CO2 23 Base Excess -2 O2 Saturation 98 O2 % 50 ABG pCO2 35.6 ABG pO2 98 Esa Test POS O2 Delivery Device Vent Vent Mode CPAP PS POC PEEP 5 POC Pressure Suppt 10 Blood Gas Notified Whom ICU MD Blood Gas Notified Time 1348 Sodium 140 Potassium 4.2 Chloride 108 H Carbon Dioxide 26.0 Anion Gap 6 BUN 11 Creatinine 0.90 Estim Creat Clear Calc 88.62 Est GFR (MDRD) Af Amer 108 Est GFR (MDRD) Non-Af 89 BUN/Creatinine Ratio 12.2 Glucose 132 H Calcium 8.0 L Total Bilirubin AST ALT Alkaline Phosphatase Troponin I Total Protein Albumin Globulin Albumin/Globulin Ratio MRSA (PCR) Medical Necessity - Tobacco Use Smoking Status: Light Smoker (<10/day) Assessment/Plan hold discharge today transfer to floor plan home tomorrow with miller to leg bag.
[2017-09-03] MEDS: Multivitamins,Therapeutic Tablet 1 TABLET PO (08:09)
[2017-09-03] MEDS: Ciprofloxacin 500 MG Tablet PO ×2 (09:21→21:05)
[2017-09-03] MEDS: Docusate Sodium 100 MG Capsule 200 MG PO ×2 (09:21→21:05)
[2017-09-03] MEDS: amLODIPine 5 MG Tablet PO (09:21)
[2017-09-03] MEDS: FLUoxetine 20 MG Capsule 40 MG PO (09:21)
--- NOTE | 2017-09-03 13:39 | CASEMGMT ---
VALENTIN CM Note: Plan is for transfer to [facility] [place] today. Pt is ambulatory, minimal assist required. No new dc needs identified. Plan still home on dc with f/u with Dr. Bender. Jodee HUFFN RN ACM
[2017-09-03] MEDS: Atorvastatin Calcium 20 MG Tablet PO (21:05)
--- NOTE | 2017-09-03 21:30 | CPS ---
Pt previously on BIPAP in ICU but wears CPAP 9 @ home HS. CPAP order received by Dr. Allen
[2017-09-04 03:00] VITALS: BP 120/83; PULSE 64; RESP 16; TEMP 36.9; O2SAT 97
[2017-09-04 07:22] VITALS: O2SAT 96
[2017-09-04 08:39] VITALS: BP 148/98; PULSE 62; RESP 18; TEMP 36.8; O2SAT 99
[2017-09-04] MEDS: Multivitamins,Therapeutic Tablet 1 TABLET PO (08:44)
[2017-09-04] MEDS: amLODIPine 5 MG Tablet PO (08:44)
[2017-09-04] MEDS: Docusate Sodium 100 MG Capsule 200 MG PO (08:45)
[2017-09-04] MEDS: Ciprofloxacin 500 MG Tablet PO (08:45)
[2017-09-04] MEDS: FLUoxetine 20 MG Capsule 40 MG PO (08:45)
--- NOTE | 2017-09-04 09:51 | PCM.PROGNOTE ---
Subjective: doing well elvin breakfast pass flatus - Physical Exam General: Alert, Oriented x3, Cooperative HEENT: Atraumatic, PERRLA, EOMI, Normocephalic Neck: Supple, No JVD, Negative Carotid Bruits Lungs: Clear to auscultation, Normal air movement Cardiovascular: Regular rate, No murmurs Abdomen: Bowel Sounds Present, Soft, Non Tender Extremities: No edema, Capillary Refill Less than 3 Seconds Skin: No rashes, No breakdown Musculoskeletal: No Tenderness to Palpation of Joints or Extremities Neurological: Cranial nerves II-XII grossly intact Psych/Mental Status: Normal Affect, Appropriate Vital Signs Temp Pulse Resp BP Pulse Ox 98.3 F 62 18 148/98 H 99 09/04/17 08:39 09/04/17 08:39 09/04/17 08:39 09/04/17 08:39 09/04/17 08:39 Oxygen Flow Rate (L/min) 2 Oxygen Delivery Method Room Air Weight: 80.3 kg Body Mass Index (BMI) 24.1 Intake and Output for Last 24 Hours 09/02/17 09/03/17 09/04/17 23:59 23:59 23:59 Intake Total 2308 / 2308 2342 / 2342 1450 / 1450 Output Total 2670 / 2670 4250 / 4250 2024 / 2024 Balance -362 / -362 -1908 / -1908 -575 / -575 Medical Necessity - Tobacco Use Smoking Status: Light Smoker (<10/day) Assessment/Plan home today with miller and leg bag and large bag Rx in chart. has follow up appt.
[2017-09-04 09:52] VITALS: BP 127/73
== END 2017-09-04 10:40 | disposition home or self-care (01) | DRG 707 ==
LOC: MS2 06:34 → ICU 13:10 → MS3 09-04 10:57
PROVIDERS: Admitting Provider Urology; Family Provider Family Medicine; PCP Family Medicine; Visit Provider Urology
PROC: 0VT04ZZ Resection of Prostate, Percutaneous Endoscopic Approach (ICD-10-PCS; CPT 55866; principal; 2017-09-02 08:10)
DX: C61 Malignant neoplasm of prostate (principal); J96.01 Acute respiratory failure with hypoxia; G93.40 Encephalopathy, unspecified; G47.33 Obstructive sleep apnea (adult) (pediatric)
CPT/HCPCS: 31500; 36415; 36600; 71045; 80048; 80053; 82803; 84484; 85025; 85027; 87641; 88304; 88307; 88309; 88341; 88342; 92950; 93005; 94002; 94003; 94660; J7030; J7120; A4216; J2405; J3490

== ENCOUNTER → 2017-10-19 09:14 | Outpatient (CLI) | payer MEDICARE, SELFPAY ==
[2017-10-19 10:29] LABS: PSA,Total- Diagnostic < 0.01 ng/mL (0.0-4.0)
== END ==
PROVIDERS: Family Provider Family Medicine; PCP Family Medicine; Visit Provider Urology
DX: C61 Malignant neoplasm of prostate (principal)
CPT/HCPCS: 36415; 84153

== ENCOUNTER → 2018-01-18 10:40 | Outpatient (CLI) | payer MEDICARE, SELFPAY ==
[2018-01-18 11:57] LABS: PSA,Total- Diagnostic < 0.01 ng/mL (0.0-4.0)
== END ==
PROVIDERS: Family Provider Family Medicine; PCP Family Medicine; Visit Provider Urology
DX: C61 Malignant neoplasm of prostate (principal)
CPT/HCPCS: 36415; 84153

== ENCOUNTER → 2018-07-14 08:51 | Outpatient (CLI) | payer MEDICARE, SELFPAY ==
[2018-07-14 10:48] LABS: Anion Gap 7 (5-15); BUN 18 mg/dL (7-18); BUN/Creat Ratio 18.4 RATIO (10-20); Calcium,Total 8.8 mg/dL (8.5-10.1); Chloride 107 mmol/L (98-107); Cholesterol 184 mg/dL (200); Creatinine, Serum 0.98 mg/dL (0.70-1.30); EST Glomerular Filtration Rate 81 mL/min (>60); Est Glom Filt Rate - Afr Amer 98 mL/min (>60); Glucose 84 mg/dL (74-106); High Density Lipoprotein 73 mg/dL; PSA,Total- Diagnostic < 0.01 ng/mL (0.0-4.0); Potassium 4.2 mmol/L (3.5-5.1); Sodium Level 141 mmol/L (136-145); Triglycerides 102 mg/dL; Very Low Density Lipoprotein 20 mg/dL (5-40)
== END ==
PROVIDERS: Family Provider Family Medicine; PCP Family Medicine; Referring Provider Family Medicine; Visit Provider Family Medicine
DX: Z00.00 Encounter for general adult medical examination without abnormal findings (principal); C61 Malignant neoplasm of prostate; I10 Essential (primary) hypertension
CPT/HCPCS: 36415; 80048; 80061; 84153

== ENCOUNTER → 2019-01-29 10:37 | Outpatient (CLI) | payer MEDICARE, SELFPAY ==
[2019-01-29 12:20] LABS: PSA,Total- Diagnostic 0.02 ng/mL (0.0-4.0)
== END ==
PROVIDERS: Family Provider Family Medicine; PCP Family Medicine; Referring Provider Urology; Visit Provider Urology
DX: C61 Malignant neoplasm of prostate (principal)
CPT/HCPCS: 36415; 84153

== ENCOUNTER → 2019-04-29 10:35 | Outpatient (CLI) | payer MEDICARE, SELFPAY ==
[2017-09-02 14:21] VITALS: BMI 24.1
[2019-04-29 12:16] LABS: PSA,Total- Diagnostic 0.03 ng/mL (0.0-4.0)
== END ==
LOC: LAB.FUTURE 10:38 → LAB 10:40
PROVIDERS: Family Provider Family Medicine; PCP Family Medicine; Referring Provider Urology; Visit Provider Urology
DX: C61 Malignant neoplasm of prostate (principal)
CPT/HCPCS: 36415; 84153

== ENCOUNTER → 2020-02-27 11:00 | Outpatient (CLI) | payer MEDICARE, SELFPAY ==
[2017-09-02 14:21] VITALS: BMI 24.1
[2020-02-27 12:51] LABS: Vitamin D,25 Hydroxy 69.8 ng/mL
[2020-02-27 13:04] LABS: Anion Gap 7 (5-15); BUN 13 mg/dL (7-18); BUN/Creat Ratio 12.4 RATIO (10-20); Calcium,Total 9.2 mg/dL (8.5-10.1); Chloride 106 mmol/L (98-107); Cholesterol 207 mg/dL (200); Creatinine, Serum 1.05 mg/dL (0.70-1.30); EST Glomerular Filtration Rate 74 mL/min (>60); Est Glom Filt Rate - Afr Amer 90 mL/min (>60); Glucose 96 mg/dL (74-106); High Density Lipoprotein 72 mg/dL; PSA,Total- Diagnostic 0.05 ng/mL (0.0-4.0); Potassium 3.9 mmol/L (3.5-5.1); Sodium Level 139 mmol/L (136-145); Thyroid Stim Hormone (TSH) 3.07 uIU/mL (0.358-3.74); Triglycerides 139 mg/dL; Very Low Density Lipoprotein 28 mg/dL (5-40)
== END ==
PROVIDERS: PCP Family Medicine; Visit Provider Family Medicine
DX: Z00.00 Encounter for general adult medical examination without abnormal findings (principal); E55.9 Vitamin D deficiency, unspecified; C61 Malignant neoplasm of prostate; I10 Essential (primary) hypertension
CPT/HCPCS: 36415; 80048; 80061; 82306; 84153; 84443

== ENCOUNTER → 2020-05-04 15:07 | Outpatient (CLI) | payer MEDICARE, SELFPAY ==
[2017-09-02 14:21] VITALS: BMI 24.1
== END ==
PROVIDERS: PCP Family Medicine; Visit Provider Family Medicine
DX: L02.91 Cutaneous abscess, unspecified (principal)
CPT/HCPCS: 87070; 87075; 87077; 87205

== ENCOUNTER 2020-07-03 12:03 | Outpatient (RCR) | payer MEDICARE, SELFPAY ==
[2017-09-02 14:21] VITALS: BMI 24.1
[2020-07-03] MEDS: COVID-19 VACC, MRNA(PFIZER)/PF 30 MCG/0.3 ML SYRINGE IM (10:10)
[2020-07-24] MEDS: COVID-19 VACC, MRNA(PFIZER)/PF 30 MCG/0.3 ML SYRINGE IM (09:46)
== END 2020-10-02 23:59 ==
LOC: IMMUN 12:03
PROVIDERS: PCP Family Medicine; Visit Provider Family Medicine
DX: Z23 Encounter for immunization (principal)
CPT/HCPCS: 0001A; 0002A; 91300

== ENCOUNTER → 2020-08-27 13:07 | Outpatient (CLI) | payer MEDICARE, SELFPAY ==
[2020-08-27 15:37] LABS: PSA,Total- Diagnostic 0.06 ng/mL (0.0-4.0)
== END ==
PROVIDERS: PCP Family Medicine; Referring Provider Urology; Visit Provider Urology
DX: R97.20 Elevated prostate specific antigen [PSA] (principal); C61 Malignant neoplasm of prostate
CPT/HCPCS: 36415; 84153

== ENCOUNTER → 2020-08-29 08:53 | Outpatient (CLI) | payer MEDICARE, SELFPAY ==
[2017-09-02 14:21] VITALS: BMI 24.1
[2020-08-29 11:06] LABS: Anion Gap 5 (5-15); BUN 16 mg/dL (7-18); BUN/Creat Ratio 16.6 RATIO (10-20); Calcium,Total 9.1 mg/dL (8.5-10.1); Chloride 106 mmol/L (98-107); Cholesterol 224 mg/dL (200); Creatinine, Serum 0.96 mg/dL (0.70-1.30); EST Glomerular Filtration Rate 82 mL/min (>60); Est Glom Filt Rate - Afr Amer 99 mL/min (>60); Glucose 83 mg/dL (74-106); High Density Lipoprotein 76 mg/dL; Potassium 4.1 mmol/L (3.5-5.1); Sodium Level 140 mmol/L (136-145); Triglycerides 148 mg/dL; Very Low Density Lipoprotein 30 mg/dL (5-40)
== END ==
PROVIDERS: PCP Family Medicine; Referring Provider Family Medicine; Visit Provider Family Medicine
DX: I10 Essential (primary) hypertension (principal)
CPT/HCPCS: 36415; 80048; 80061

== ENCOUNTER → 2021-03-01 09:12 | Outpatient (CLI) | payer MEDICARE, SELFPAY ==
[2021-03-01 10:41] LABS: Anion Gap 3 (5-15); BUN 17 mg/dL (7-18); BUN/Creat Ratio 15.5 RATIO (10-20); Calcium,Total 9.1 mg/dL (8.5-10.1); Chloride 106 mmol/L (98-107); Cholesterol 209 mg/dL (200); EST Glomerular Filtration Rate 70 mL/min (>60); Est Glom Filt Rate - Afr Amer 85 mL/min (>60); Glucose 90 mg/dL (74-106); High Density Lipoprotein 74 mg/dL; PSA,Total- Diagnostic 0.07 ng/mL (0.0-4.0); Potassium 4.2 mmol/L (3.5-5.1); Sodium Level 140 mmol/L (136-145); Triglycerides 65 mg/dL; Very Low Density Lipoprotein 13 mg/dL (5-40)
== END ==
PROVIDERS: PCP Family Medicine; Referring Provider Family Medicine; Visit Provider Family Medicine
DX: I10 Essential (primary) hypertension (principal); C61 Malignant neoplasm of prostate
CPT/HCPCS: 36415; 80048; 80061; 84153

== ENCOUNTER → 2021-09-02 | Outpatient (CLI) | payer MEDICARE, SELFPAY ==
[2021-09-02 16:12] LABS: Anion Gap 8 (5-15); BUN 13 mg/dL (7-18); Calcium,Total 9.3 mg/dL (8.5-10.1); Chloride 104 mmol/L (98-107); Cholesterol 220 mg/dL (200); Creatinine, Serum 1.08 mg/dL (0.70-1.30); EST Glomerular Filtration Rate 72 mL/min (>60); Est Glom Filt Rate - Afr Amer 87 mL/min (>60); Glucose 93 mg/dL (74-106); High Density Lipoprotein 73 mg/dL; PSA,Total - Annual Screen 0.08 ng/mL (0.00-4.00); Sodium Level 138 mmol/L (136-145); Triglycerides 130 mg/dL; Very Low Density Lipoprotein 26 mg/dL (5-40)
== END | disposition home or self-care (01) ==
LOC: MFPLAB 10:01
PROVIDERS: PCP Family Medicine; Visit Provider Family Medicine
DX: N40.0 Benign prostatic hyperplasia without lower urinary tract symptoms (principal); I10 Essential (primary) hypertension; Z12.5 Encounter for screening for malignant neoplasm of prostate
CPT/HCPCS: 36415; 80048; 80061; 84153; G0103

== ENCOUNTER → 2022-03-03 | Outpatient (CLI) | payer MEDICARE, SELFPAY ==
[2022-03-03 12:53] LABS: Anion Gap 8 (5-15); BUN 19 mg/dL (7-18); BUN/Creat Ratio 20.9 RATIO (10-20); Calcium,Total 9.1 mg/dL (8.5-10.1); Chloride 105 mmol/L (98-107); Cholesterol 198 mg/dL (200); Creatinine, Serum 0.91 mg/dL (0.70-1.30); EST Glomerular Filtration Rate 88 mL/min (>60); Est Glom Filt Rate - Afr Amer 106 mL/min (>60); Glucose 94 mg/dL (74-106); High Density Lipoprotein 79 mg/dL; PSA,Total- Diagnostic 0.09 ng/mL (0.0-4.0); Potassium 3.9 mmol/L (3.5-5.1); Sodium Level 138 mmol/L (136-145); Triglycerides 100 mg/dL; Very Low Density Lipoprotein 20 mg/dL (5-40)
== END | disposition home or self-care (01) ==
LOC: MFPLAB 09:38
PROVIDERS: PCP Family Medicine; Referring Provider Family Medicine; Visit Provider Family Medicine
DX: C61 Malignant neoplasm of prostate (principal); I10 Essential (primary) hypertension
CPT/HCPCS: 36415; 80048; 80061; 84153

== ENCOUNTER → 2022-09-01 | Outpatient (CLI) | payer MEDICARE, SELFPAY ==
[2022-09-01 12:28] LABS: Anion Gap 7 (5-15); BUN 18 mg/dL (7-18); BUN/Creat Ratio 16.8 RATIO (10-20); Calcium,Total 9.1 mg/dL (8.5-10.1); Chloride 104 mmol/L (98-107); Cholesterol 195 mg/dL (200); Creatinine, Serum 1.07 mg/dL (0.70-1.30); EST Glomerular Filtration Rate 72 mL/min (>60); Est Glom Filt Rate - Afr Amer 88 mL/min (>60); Glucose 91 mg/dL (74-106); High Density Lipoprotein 74 mg/dL; PSA,Total- Diagnostic 0.11 ng/mL (0.0-4.0); Potassium 4.1 mmol/L (3.5-5.1); Sodium Level 138 mmol/L (136-145); Triglycerides 99 mg/dL; Very Low Density Lipoprotein 20 mg/dL (5-40)
== END | disposition home or self-care (01) ==
LOC: MFPLAB 10:00
PROVIDERS: PCP Family Medicine; Visit Provider Family Medicine
DX: C61 Malignant neoplasm of prostate (principal); I10 Essential (primary) hypertension
CPT/HCPCS: 36415; 80048; 80061; 84153

== ENCOUNTER → 2023-03-09 | Outpatient (CLI) | payer MEDICARE, SELFPAY | END | disposition home or self-care (01) | LOC: MFPLAB 11:07 | PROVIDERS: PCP Family Medicine; Visit Provider Family Medicine | DX: C61 Malignant neoplasm of prostate (principal) | CPT/HCPCS: 36415; 84153 ==

== ENCOUNTER → 2023-09-11 | Outpatient (CLI) | payer MEDICARE, SELFPAY ==
[2023-09-11 16:25] LABS: Anion Gap 7 (5-15); BUN 15 mg/dL (7-18); BUN/Creat Ratio 15.9 RATIO (10-20); Calcium,Total 9.1 mg/dL (8.5-10.1); Chloride 106 mmol/L (98-107); Cholesterol 182 mg/dL (200); Creatinine, Serum 0.94 mg/dL (0.70-1.30); EST Glomerular Filtration Rate 83 mL/min (>60); Est Glom Filt Rate - Afr Amer 101 mL/min (>60); Glucose 90 mg/dL (74-106); High Density Lipoprotein 74 mg/dL; PSA,Total- Diagnostic 0.12 ng/mL (0.0-4.0); Potassium 3.9 mmol/L (3.5-5.1); Sodium Level 138 mmol/L (136-145); Triglycerides 75 mg/dL; Very Low Density Lipoprotein 15 mg/dL (5-40)
== END | disposition home or self-care (01) ==
LOC: MFPLAB 12:07
PROVIDERS: PCP Family Medicine; Visit Provider Family Medicine
DX: Z00.00 Encounter for general adult medical examination without abnormal findings (principal); C61 Malignant neoplasm of prostate
CPT/HCPCS: 36415; 80048; 80061; 84153

== ENCOUNTER → 2024-03-14 | Outpatient (CLI) | payer MEDICARE, SELFPAY ==
[2024-03-14 16:04] LABS: ALB/GLOB Ratio 1.1 RATIO (0.9-2.4); AST(SGOT) 19 U/L (15-37); Alanine Aminotransfer ALT/SGPT 29 U/L (16-61); Albumin, Serum 3.6 g/dL (3.2-5.0); Alkaline Phosphatase 61 U/L (45-117); Anion Gap 6 (5-15); BUN 16 mg/dL (7-18); BUN/Creat Ratio 15.5 RATIO (10-20); Calcium,Total 9.1 mg/dL (8.5-10.1); Chloride 106 mmol/L (98-107); Cholesterol 188 mg/dL (200); Creatinine, Serum 1.03 mg/dL (0.70-1.30); EST Glomerular Filtration Rate 75 mL/min (>60); Est Glom Filt Rate - Afr Amer 91 mL/min (>60); Globulin 3.4 g/dL (2.2-4.2); Glucose 89 mg/dL (74-106); High Density Lipoprotein 83 mg/dL; PSA,Total- Diagnostic 0.13 ng/mL (0.0-4.0); Potassium 4.1 mmol/L (3.5-5.1); Sodium Level 138 mmol/L (136-145); Triglycerides 145 mg/dL; Very Low Density Lipoprotein 29 mg/dL (5-40)
== END | disposition home or self-care (01) ==
PROVIDERS: PCP Family Medicine; Visit Provider Family Medicine
DX: C61 Malignant neoplasm of prostate (principal); E78.00 Pure hypercholesterolemia, unspecified
CPT/HCPCS: 36415; 80053; 80061; 84153

== ENCOUNTER → 2024-09-12 | Outpatient (CLI) | payer MEDICARE, SELFPAY ==
[2024-09-12 16:15] LABS: ALB/GLOB Ratio 1.4 RATIO (0.9-2.4); AST(SGOT) 20 U/L (<=37); Alanine Aminotransfer ALT/SGPT 20 U/L (<=46); Albumin, Serum 4.1 g/dL (3.4-4.8); Alkaline Phosphatase 69 U/L (40-129); Anion Gap 11 (5-15); BUN 15 mg/dL (4-19); BUN/Creat Ratio 14.8 RATIO (10-20); Calcium,Total 9.5 mg/dL (7.6-11.0); Carbon Dioxide 22.9 mmol/L (21.0-32.0); Chloride 103 mmol/L (98-108); Cholesterol 184 mg/dL (<=200); Creatinine, Serum 0.98 mg/dL (0.70-1.20); EST Glomerular Filtration Rate 81 (>60); Glucose 88 mg/dL (70-99); High Density Lipoprotein 68 mg/dL; Low Density Lipoprotein Calc. 97 mg/dL; PSA,Total- Diagnostic 0.15 ng/mL (0.00-4.00); Potassium 4.1 mmol/L (3.3-5.1); Protein, Total 7.1 g/dL (5.9-8.4); Sodium Level 137 mmol/L (133-145); Total Bilirubin 0.62 mg/dL (0.00-1.30); Triglycerides 98 mg/dL; Very Low Density Lipoprotein 20 mg/dL (5-40); cholesterol:hdl ratio screen 2.72
== END | disposition home or self-care (01) ==
LOC: MFPLAB 11:58
PROVIDERS: PCP Family Medicine; Referring Provider Family Medicine; Visit Provider Family Medicine
DX: C61 Malignant neoplasm of prostate (principal); I10 Essential (primary) hypertension
CPT/HCPCS: 36415; 80053; 80061; 84153

== ENCOUNTER → 2025-03-20 | Outpatient (CLI) | payer MEDICARE, SELFPAY ==
[2025-03-20 12:12] LABS: Hematocrit 43.9 % (40-54); Hemoglobin 15.1 g/dL (13.0-16.5); Immature Granulocytes Count 0.050 X10^3/uL (0.0-0.0); Mean Corp Hgb Conc 34.4 g/dL (32-36); Mean Corpuscular Volume 88.2 fL (80-94); Mean Platelet Vol. 9.0 fl (6.2-12.0); NRBC Flagged by Analyzer 0 % (0-5); Platelet Count 273 K/mm3 (150-450); RBC Distribution Width CV 12.4 % (11.6-14.6); RBC Distribution Width SD 40.4 fl (35.1-43.9); Red Blood Count 4.98 M/mm3 (4.6-6.2); White Blood Count 8.4 K/mm3 (4.4-11.0)
[2025-03-20 15:49] LABS: AST(SGOT) 21 U/L (<=37); Alanine Aminotransfer ALT/SGPT 24 U/L (<=46); Albumin, Serum 4.2 g/dL (3.4-4.8); Alkaline Phosphatase 70 U/L (40-129); Anion Gap 13 (5-15); BUN 15 mg/dL (4-19); BUN/Creat Ratio 13.5 RATIO (10-20); Calcium,Total 9.4 mg/dL (7.6-11.0); Carbon Dioxide 23.4 mmol/L (21.0-32.0); Chloride 102 mmol/L (98-108); Globulin 3.0 g/dL (2.2-4.2); Glucose 96 mg/dL (70-99); Potassium 4.0 mmol/L (3.3-5.1)
== END | disposition home or self-care (01) ==
LOC: MFPLAB 11:10
PROVIDERS: PCP Family Medicine; Visit Provider Family Medicine
DX: D64.9 Anemia, unspecified (principal); I10 Essential (primary) hypertension
CPT/HCPCS: 36415; 80053; 85025